=== PATIENT | female | born 1955 | race Caucasian/White ===

== ENCOUNTER 2018-11-03 13:52 | Outpatient (CLI) | payer OTHER ==
--- NOTE | 2018-11-03 16:40 | RAD ---
LUMBAR SPINE 3 VIEWS: DATE: 11/03/2018. FINDINGS: Comparison is made with a 02/18/06 MRI of the lumbar spine. Mild anterior compression of the superior end plate of L1 is an old finding and was present previousl y. It is similar to before. The L5 vertebral body has compressed slightly in the interval and is so mewhat sclerotic today. This may be more recent. There is no disk space narrowing. Bony spurring i s seen, particularly at the thoracolumbar junction. The SI joints appear normal. An incidental find ing is a 3 cm abdominal aortic aneurysm just above the bifurcation. Degenerative changes are present and the facet joints, particularly at the L4 through S1 levels. IMPRESSION: 1. Mild compression and sclerosis of the L5 vertebral body compared to a 2006 MRI. A more recent MR I would be better able to assess if this was new or old, as well as if there is any neural impingemen t. 2. 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 3. Some facet arthritis in the lower lumbar spine. 4. A 3 cm abdominal aortic aneurysm. CODE T POS: HOME
== END 2018-11-03 13:53 | disposition home or self-care (01) ==
LOC: BURRAD 13:52
PROVIDERS: ATTEND Family Medicine
DX: M54.42 Lumbago with sciatica, left side (principal); M47.814 Spondylosis without myelopathy or radiculopathy, thoracic region; M47.816 Spondylosis without myelopathy or radiculopathy, lumbar region; I71.4 Abdominal aortic aneurysm, without rupture
CPT/HCPCS: 72100

== ENCOUNTER 2020-07-24 08:14 | Emergency (ER) | payer MEDICARE ==
[2020-07-24] MEDS ORDERED: predniSONE 20 MG TAB ONE (08:30)
[2020-07-24 09:02] LABS: ALT (SGPT) 23 U/L (8-55); AST (SGOT) 19 U/L (5-34); Albumin 4.1 g/dL (3.4-4.8); Alkaline Phosphatase 109 U/L (40-110); Anion Gap 13 mmol/L (10-20); BUN (Urea Nitrogen) 32 mg/dL (9.8-20.1); Bilirubin, Total 0.4 mg/dL (0.2-1.2); Calc. Creatinine Clearance 0 mL/min (70-130); Calcium 8.8 mg/dL (7.8-10.44); Carbon Dioxide 28 mmol/L (23-31); Chloride 107 mmol/L (98-107); Estimated GFR-MDRD 49; Globulin 2.8 g/dL (2.4-3.5); Glucose 167 mg/dL (80-115); Potassium 4.4 mmol/L (3.5-5.1); Protein, Total 6.9 g/dL (6.0-8.3); Sodium 144 mmol/L (136-145)
[2020-07-24 09:04] LABS: #Basophils 0.1 thou/uL (0.0-0.2); #Eosinphils 0.2 thou/uL (0.0-0.7); #Monocytes 0.8 thou/uL (0.11-0.59); %Basophils 1.7 % (0.0-1.0); %Lymphocytes 37.2 % (21.0-51.0); %Monocytes 9.3 % (0.0-10.0); %Neutrophils 48.8 % (42.0-75.0); Hemoglobin 12.2 g/dL (12.0-16.0); MDiff Complete? YES; Macrocytosis SLIGHT = 6-15 cells (100X) (0-5/hpf); Mean Corpuscular HGB CONC 30.3 g/dL (32.0-36.0); Mean Corpuscular Hemoglobin 31.9 pg (27.0-31.0); Mean Platelet Volume 7.6 fL (7.4-10.4); Platelet Count 198 thou/uL (130-400); RBC Distribution Width 13.5 % (11.5-14.5); Red Blood Cell (RBC) Count 3.84 mill/uL (4.20-5.40); White Blood Cell (WBC) Count 8.1 thou/uL (4.8-10.8)
--- NOTE | 2020-07-24 10:01 | CT ---
Exam: Head CT without contrast HISTORY: Altered mental status. Comparison none FINDINGS: No parenchymal hemorrhage No extra-axial hematoma No midline shift Basilar cisterns are patent Age-appropriate atrophy Cortical suresh-white white matter differentiation is preserved No hydrocephalus Hypodensity in the medial aspect of the left lentiform nucleus may represent a indeterminate lacunar infarct, measuring 0.5 cm. There is a well-circumscribed hypodensity inferior to the left lentiform nucleus which may represent a more remote lacunar infarct, measuring 0.9 cm. Intact calvarium. Adequate aeration of the sinuses and mastoid air cells. IMPRESSION: 1. Hypodensities in the left deep suresh matter structures as detailed above. Further evaluation with b rain MRI clinically warranted. 2. Results study discussed with Dr. Donnelly 07/24/2020 at 9:56 AM Code CR
[2020-07-24] MEDS ORDERED: Azithromycin 250 MG TAB ONE (10:24)
[2020-07-24] MEDS ORDERED: cefTRIAXone\\ROCEPHIN 2 GM VIAL ONE (10:24)
[2020-07-24] MEDS ORDERED: Sodium Chloride 0.9% 100 ML ONE (10:25)
[2020-07-24 10:43] LABS: Base Excess-Venous 1.7 mmol/L (-2.0 to 3.0); Bicarbonate (HCO3v) 30.1 mmol/L (22.0-28.0); Calcium, Ionized 1.16 mmol/L (See Comments:); Chloride 108 mmol/L (98-107); Hemoglobin - Calc 13.1 g/dL (12.0-16.0); Potassium 4.8 mmol/L (3.5-5.1); Sodium 145 mmol/L (138-145); T. Carbon Dioxide 32.1 mmol/L (22.0-28.0); vO2 Saturation-calc 86.9 % (60.0-85.0)
[2020-07-24 10:55] LABS: Bilirubin Negative (Negative); Blood, Urine Trace (Negative); Clarity Clear (Clear); Glucose, Urine (Dipstick) Negative (Negative); Ketone, Urine Negative (Negative); Leukocyte Negative (Negative); Nitrite Negative (Negative); Protein, Urine (Dipstick) 100 mg/dL (Neg-Trace); Specific Gravity, Urine 1.019 (1.002-1.036); Urobilinogen 0.2 mg/dL (Less than 2); pH, Urine 5.5 (5.0-9.0)
[2020-07-24 10:59] LABS: Bacteria/HPF Rare-Few HPF (None Seen); RBC/HPF 0-3 HPF (0-3); Squamous Epithelial 0-3 HPF (0-3); WBC/HPF 0-3 HPF (0-3)
--- NOTE | 2020-07-24 11:03 | RAD ---
PORTABLE CHEST: Date: 07/24/2020 An AP portable film at 0837 hours is compared with the 04/10/2013 study. The heart is normal in size. There is no vascular congestion, edema, or pleural effusion. At most, th ere might be a little bit of basilar atelectasis on the right, but I do not see any lobar consolidati ons at this time. IMPRESSION: Minor right basilar streaking. POS: HOME
== END 2020-07-24 12:08 | disposition short-term general hospital (02) ==
LOC: BURERS 08:14
DX: J44.1 Chronic obstructive pulmonary disease with (acute) exacerbation (principal); I63.9 Cerebral infarction, unspecified; R41.82 Altered mental status, unspecified; E11.9 Type 2 diabetes mellitus without complications; I10 Essential (primary) hypertension; E78.00 Pure hypercholesterolemia, unspecified; F17.210 Nicotine dependence, cigarettes, uncomplicated; Z79.899 Other long term (current) drug therapy; Z79.84 Long term (current) use of oral hypoglycemic drugs; Z79.82 Long term (current) use of aspirin; Z79.51 Long term (current) use of inhaled steroids
CPT/HCPCS: 36415; 70450; 71045; 80053; 81003; 81015; 82330; 82803; 83605; 83880; 84443; 84484; 85025; 87040; 87086; 93005; 94640; 94760; 96361; 96365; J0696; J3490; J7512; J7620

== ENCOUNTER 2021-07-13 15:54 | Outpatient (CLI) | payer MEDICARE | END 2021-07-13 15:55 | disposition home or self-care (01) | LOC: BURRAD 15:54 | PROVIDERS: ATTEND Nurse Practitioner | DX: S80.02XA Contusion of left knee, initial encounter (principal); M17.12 Unilateral primary osteoarthritis, left knee; M25.462 Effusion, left knee ==

== ENCOUNTER 2022-07-04 23:06 | Emergency (ER) | payer MEDICARE, OTHER ==
[2022-07-05 00:22] LABS: #Basophils 0.1 thou/uL (0.0-0.2); #Lymphocytes 1.6 thou/uL (1.20-3.40); #Monocytes 0.8 thou/uL (0.11-0.59); %Basophils 0.9 % (0.0-1.0); %Eosinophils 0.1 % (0.0-10.0); %Lymphocytes 13.9 % (21.0-51.0); %Monocytes 6.6 % (0.0-10.0); %Neutrophils 78.5 % (42.0-75.0); Hemoglobin 13.8 g/dL (12.0-16.0); Mean Corpuscular HGB CONC 32.7 g/dL (32.0-36.0); Mean Corpuscular Hemoglobin 34.3 pg (27.0-31.0); Platelet Count 137 thou/uL (130-400); RBC Distribution Width 13.5 % (11.5-14.5); Red Blood Cell (RBC) Count 4.02 mill/uL (4.20-5.40); White Blood Cell (WBC) Count 11.4 thou/uL (4.8-10.8)
[2022-07-05 00:25] LABS: ALT (SGPT) 37 U/L (8-55); AST (SGOT) 39 U/L (5-34); Albumin 4.2 g/dL (3.4-4.8); Alkaline Phosphatase 102 U/L (40-110); Anion Gap 17 mmol/L (10-20); BUN (Urea Nitrogen) 36 mg/dL (9.8-20.1); Bilirubin, Total 0.4 mg/dL (0.2-1.2); Calc. Creatinine Clearance 0 mL/min (70-130); Calcium 9.1 mg/dL (7.8-10.44); Carbon Dioxide 28 mmol/L (23-31); Chloride 99 mmol/L (98-107); Estimated GFR 31; Globulin 3.5 g/dL (2.4-3.5); Glucose 234 mg/dL (80-115); Potassium 6.2 mmol/L (3.5-5.1); Protein, Total 7.7 g/dL (5.8-8.1); Sodium 138 mmol/L (136-145)
[2022-07-05 00:31] LABS: Base Excess-Venous 1.4 mmol/L (-2.0 to 3.0); Bicarbonate (HCO3v) 29.7 mmol/L (22.0-28.0); CO2 Tension (PvCO2) 60.8 mmHg (42.0-51.0); Calcium, Ionized 1.03 mmol/L (1.15-1.33); Chloride 101 mmol/L (98-107); Hemoglobin - Calc 15.2 g/dL (12.0-16.0); Potassium 5.9 mmol/L (3.5-5.1); Sodium 139 mmol/L (138-145); T. Carbon Dioxide 31.5 mmol/L (22.0-28.0); vO2 Saturation-calc 70.9 % (60.0-85.0)
[2022-07-05] MEDS ORDERED: Albuterol Sulfate 2.5 mg/0.5 ml Neb ONE ×2 (03:01→03:43)
[2022-07-05] MEDS ORDERED: Insulin Regular 300 UNITS/3 ML VIAL ONE (03:01)
[2022-07-05] MEDS ORDERED: Dextrose 50% Abboject 50 ML SYRINGE ONE (03:01)
[2022-07-05] MEDS ORDERED: Albuterol Sulfate 2.5 mg/3 ml Neb ONE (03:42)
[2022-07-05 03:48] LABS: Base Excess-Venous 0.1 mmol/L (-2.0 to 3.0); Bicarbonate (HCO3v) 30.1 mmol/L (22.0-28.0); CO2 Tension (PvCO2) 73.4 mmHg (42.0-51.0); Calcium, Ionized 1.14 mmol/L (1.15-1.33); Chloride 100 mmol/L (98-107); Hemoglobin - Calc 14.5 g/dL (12.0-16.0); Potassium 5.2 mmol/L (3.5-5.1); Sodium 136 mmol/L (138-145); T. Carbon Dioxide 32.3 mmol/L (22.0-28.0)
[2022-07-05 04:22] LABS: Base Excess-Venous -0.4 mmol/L (-2.0 to 3.0); CO2 Tension (PvCO2) 67.3 mmHg (42.0-51.0); Calcium, Ionized 1.12 mmol/L (1.15-1.33); Chloride 101 mmol/L (98-107); Potassium 5.2 mmol/L (3.5-5.1); Sodium 137 mmol/L (138-145); vO2 Saturation-calc 95.9 % (60.0-85.0)
[2022-07-05 04:43] LABS: SARS-CoV-2 NAA Rapid Test DETECTED (NotDetected)
[2022-07-05 05:47] LABS: MDiff Complete? YES; Macrocytosis SLIGHT = 6-15 cells (100X) (0-5/hpf)
== END 2022-07-05 04:40 | disposition short-term general hospital (02) ==
LOC: BURERS 23:06
DX: U07.1 COVID-19 (principal); J44.1 Chronic obstructive pulmonary disease with (acute) exacerbation; R09.02 Hypoxemia; E87.2 Acidosis; E87.5 Hyperkalemia; I10 Essential (primary) hypertension; E11.9 Type 2 diabetes mellitus without complications; E78.5 Hyperlipidemia, unspecified; F17.210 Nicotine dependence, cigarettes, uncomplicated; Z79.84 Long term (current) use of oral hypoglycemic drugs; Z79.82 Long term (current) use of aspirin; Z79.899 Other long term (current) drug therapy
CPT/HCPCS: 36415; 71045; 80053; 82330; 82435; 82803; 83880; 84132; 84295; 84484; 85014; 85025; 93005; 96361; 96365; 96375; J1815; J1956; J7611; J7620; J7999; U0002